=== PATIENT | male | born 1960 | race Caucasian/White ===

== ENCOUNTER 2018-06-28 08:19 | Observation (INO) ==
--- NOTE | 2018-06-28 09:46 | Emergency Department Note ---
Disposition Clinical Impression: Esophageal mass Dysphagia Qualifiers: Dysphagia type: esophageal phase Qualified Code(s): R13.10 - Dysphagia, unspecified Disposition: Admitted As Inpatient Condition: Fair Time of Disposition: 17:00 General Adult HPI - General Chief complaint: ED Dental/Oral Stated complaint: "trouble swallowing" Time Seen by Provider: 06/28/18 09:02 Source: patient, family Limitations: no limitations Nursing Notes Reviewed: Yes Vital Signs Reviewed: Yes - History of Present Illness HPI Narrative: Patient is a 58-year-old male who presents to [facility] ED with a chief complaint of trouble swallowing. States his symptoms have been worsening over the last 2 weeks. States he has not been able to swallow any meat for 2 weeks. He has been able to take down liquids, however he states this has been getting worse as well. States he is only able to take a sip at a time. States he feels like it builds up in his chest and then he is able to squeeze it back out if he wants to. States there is a family history of his siblings having issues with esophageal strictures or growths. Also describes a 30 pound weight loss over the last 2 months. Denies any chest pain, difficulty breathing, abdominal pain, problems with urination or bowel movements. Onset (ago): week(s) (2) Pain Scale: 0 Consistency: constant Improves with: nothing Worsens with: nothing Associated symptoms: Reports: denies other symptoms. Denies: chest pain, cough , fever/chills, nausea/vomiting, shortness of breath Treatments Prior to Arrival: none - Related Data Home Medications Medication Instructions Recorded Confirmed No Known Home Drugs 06/28/18 06/28/18 Allergies Allergy/AdvReac Type Severity Reaction Status Date / Time No Known Allergies Allergy Verified 06/28/18 14:40 All systems ED: reviewed and negative except as stated. Past Medical History - Past Medical History Attestation: Yes The following information was validated with the patient. Source: patient Medical history: Reports: non-contributory - Social History Smoking Status: Current every day smoker Smokeless Tobacco Status: No Alcohol use: Reports: none Drug use: Reports: none Physical Exam - General Limitations: no limitations General appearance: alert, in no apparent distress - Head Head exam: atraumatic, normocephalic, normal inspection - Eye Eye exam: Present: EOMI - ENT ENT exam: normal exam, normal oropharynx, mucous membranes moist - Neck Neck exam: Present: normal inspection, full ROM, trachea midline - Chest Chest inspection: Present: normal inspection, symmetric chest wall rise - Respiratory Respiratory exam: Present: normal lung sounds bilaterally - Cardiovascular Cardiovascular exam: Present: regular rate, normal rhythm, normal heart sounds - Abdominal Exam Abdominal exam: Present: soft, Non-Tender. Absent: tenderness, distention, guarding, rebound, rigidity - Extremities Exam Extremities exam: Present: normal inspection, full ROM. Absent: tenderness, pedal edema - Neurological Exam Neurological exam: Present: alert, oriented X3 - Psychiatric Psychiatric exam: Present: normal affect, normal mood - Skin Skin exam: Present: warm, dry, intact, normal color Course Course Narrative: Patient seen and examined. Due to the dysphagia that patient has had, we will discuss with whoever is on for endoscopy. I discussed with surgery team who states they will be down to evaluate the patient. - Reevaluation(s) Reevaluation #1: Upon further questioning, surgery had not been down to evaluate the patient. They called the vocational counselor nurse practitioner who states they will be down to evaluate the patient if we put in consult. I went ahead and did this. Time: 11:00 Reevaluation #2: I called gastroenterology back again since they had not been down to evaluate the patient and his length of stay is now 6 [address] The vocational counselor Dr. Presley stated to do a CT of the chest with IV contrast to evaluate for any impingement from a mass. States he would do a scope on the patient in the morning if we get him admitted to the hospitalist. When I went back to discuss this with the patient, patient does not want to be admitted tonight. States he will get the labs and imaging done but would like to come back in the morning for scope. Time: 14:41 Reevaluation #3: I discussed with gastroenterology to see if we could get this set up tomorrow outpatient. They expressed their concern that this would not be able to get done due to needing preauthorization. This would delay patient's upper scope. Since the CT shows some signs of a underlying mass at the GE junction that needs direct further visualization, it is still recommended that we admit him to the hospital so he can have his scope done tomorrow. I discussed this with the patient who agrees with this plan. Ira hospitalist at this time. Time: 16:40 Vital Signs Temperature 98.1 F 06/28/18 08:23 Pulse Rate 85 06/28/18 08:23 Respiratory Rate 16 06/28/18 08:23 Blood Pressure 154/99 06/28/18 08:23 O2 Sat by Pulse Oximetry 98 06/28/18 08:23 Temperature 98.2 F 06/28/18 19:53 Pulse Rate 63 06/28/18 19:53 Respiratory Rate 16 06/28/18 19:53 Blood Pressure 132/82 06/28/18 19:53 O2 Sat by Pulse Oximetry 98 06/28/18 19:53 Oxygen Delivery Oxygen Delivery Room Air Medical Decision Making - Medical Records Medical records reviewed: Yes I reviewed the patient's medical records. - Lab Data Lab results reviewed: Yes I reviewed the patient's lab results. Result diagrams: 06/28/18 14:22 06/28/18 14:22 Lab Results 06/28/18 06/28/18 Range/Units 14:22 14:22 WBC 7.0 (4.3-11.1) K/mcL RBC 5.75 H (4.19-5.50) M/mcL Hgb 16.7 (12.9-16.9) g/dL Hct 49.1 (37.5-50.1) % MCV 85.4 (83.0-100.0) fL MCH 29.0 (28.0-33.3) pg MCHC 34.0 (31.6-35.5) g/dL RDW 12.8 (11.5-14.5) % Plt Count 211 (140-400) K/mcL MPV 11.2 (9.4-12.4) fL Immature Gran % 0.1 (0-4) % Seg Neutrophils % 46.0 % Lymphocytes % 43.2 % Monocytes % 8.1 % Eosinophils % 2.0 % Basophils % 0.6 % Neutrophils # 3.2 (1.6-8.9) K/mcL Lymphocytes # 3.0 (0.6-4.6) K/mcL Monocytes # 0.6 (0.0-1.3) K/mcL Eosinophils # 0.1 (0.0-0.6) K/mcL Basophils # 0.0 (0.0-0.2) K/mcL Sodium 138 (136-145) mEq/L Potassium 4.4 (3.5-5.1) mEq/L Chloride 104 (98-107) mEq/L Carbon Dioxide 29 (23-29) mEq/L BUN 16 (6-20) mg/dL Creatinine 1.23 (0.70-1.30) mg/dL Est GFR ( Amer) > 60 (> 60) Est GFR (Non-Af Amer) > 60 (> 60) BUN/Creatinine Ratio 13 (6-26) Glucose 99 (70-105) mg/dL Calculated Osmolality 287 (280-300) Calcium 9.8 (8.6-10.3) mg/dL - Radiology Data Radiology results reviewed: Yes I reviewed the patient's radiology results. Chest CT 06/28/18 14:22 IMPRESSION: 1. Focal wall thickening at the distal esophagus/gastroesophageal junction, concerning for an underlying mass. Direct visualization is recommended. 2. No intrathoracic lymphadenopathy. 3. A couple 4 mm nodules are seen in the left lower lobe. Follow-up recommendations below. RECOMMENDATIONS: Fleischner Society guidelines for follow-up and management of incidentally detected pulmonary nodules: Multiple Solid Nodules: Nodule size less than 6 mm In a low-risk patient, no routine follow-up. In a high-risk patient, optional CT at 12 months. -Low risk patients include individuals with minimal or absent history of smoking and other known risk factors. - High risk patients include individuals with a history or smoking or known risk factors. Radiology 2017 http://pubs.rsna.org/doi/full/10.1148/[email or web address] D/ / 06/28/2018 17:02:51 Adrianne Padgett / connie Interpreting Provider: Adrianne Padgett
--- NOTE | 2018-06-28 10:00 | Emergency Department Note ---
Disposition Clinical Impression: Dysphagia Qualifiers: Dysphagia type: esophageal phase Qualified Code(s): R13.10 - Dysphagia, unspecified Disposition: Admitted As Inpatient Condition: Fair General Adult HPI - General Chief complaint: ED Dental/Oral Stated complaint: "trouble swallowing" Time Seen by Provider: 06/28/18 09:02 Source: patient, family Limitations: no limitations - History of Present Illness Pain Scale: 0 - Related Data Home Medications Medication Instructions Recorded Confirmed No Known Home Drugs 06/28/18 06/28/18 Allergies Allergy/AdvReac Type Severity Reaction Status Date / Time No Known Allergies Allergy Verified 06/28/18 14:40 Past Medical History - Past Medical History Medical history: Reports: non-contributory - Social History Smoking Status: Current every day smoker Smokeless Tobacco Status: No Alcohol use: Reports: none Drug use: Reports: none Physical Exam - General Limitations: no limitations General appearance: alert, in no apparent distress Course Vital Signs Temperature 98.1 F 06/28/18 08:23 Pulse Rate 85 06/28/18 08:23 Respiratory Rate 16 06/28/18 08:23 Blood Pressure 154/99 06/28/18 08:23 O2 Sat by Pulse Oximetry 98 06/28/18 08:23 Temperature 98.1 F 06/28/18 08:36 Pulse Rate 71 06/28/18 16:29 Respiratory Rate 18 06/28/18 17:18 Blood Pressure 148/73 06/28/18 17:18 O2 Sat by Pulse Oximetry 99 06/28/18 16:29 Oxygen Delivery Oxygen Delivery Room Air Medical Decision Making - Lab Data Result diagrams: 06/28/18 14:22 06/28/18 14:22 Lab Results 06/28/18 06/28/18 Range/Units 14:22 14:22 WBC 7.0 (4.3-11.1) K/mcL RBC 5.75 H (4.19-5.50) M/mcL Hgb 16.7 (12.9-16.9) g/dL Hct 49.1 (37.5-50.1) % MCV 85.4 (83.0-100.0) fL MCH 29.0 (28.0-33.3) pg MCHC 34.0 (31.6-35.5) g/dL RDW 12.8 (11.5-14.5) % Plt Count 211 (140-400) K/mcL MPV 11.2 (9.4-12.4) fL Immature Gran % 0.1 (0-4) % Seg Neutrophils % 46.0 % Lymphocytes % 43.2 % Monocytes % 8.1 % Eosinophils % 2.0 % Basophils % 0.6 % Neutrophils # 3.2 (1.6-8.9) K/mcL Lymphocytes # 3.0 (0.6-4.6) K/mcL Monocytes # 0.6 (0.0-1.3) K/mcL Eosinophils # 0.1 (0.0-0.6) K/mcL Basophils # 0.0 (0.0-0.2) K/mcL Sodium 138 (136-145) mEq/L Potassium 4.4 (3.5-5.1) mEq/L Chloride 104 (98-107) mEq/L Carbon Dioxide 29 (23-29) mEq/L BUN 16 (6-20) mg/dL Creatinine 1.23 (0.70-1.30) mg/dL Est GFR ( Amer) > 60 (> 60) Est GFR (Non-Af Amer) > 60 (> 60) BUN/Creatinine Ratio 13 (6-26) Glucose 99 (70-105) mg/dL Calculated Osmolality 287 (280-300) Calcium 9.8 (8.6-10.3) mg/dL Attestation Statement - Attestation Attestation: I examined this patient and my medical decision-making was reviewed with the TEMPORARY HELP AGENCY REFERRAL CLERK/PA/Advanced Practice Nurse/Resident Physician. I agree with the documented findings, disposition and treatment plan as described except to the extent set forth below. I did see the patient is spoke with him and examined him and he presents with 30 pounds unintentional weight loss as well as inability to swallow solids. He did have discomfort with swallowing and saw a driver/sales workers recently who did a laryngoscopy which the patient tells me was normal. We are contacting GI for consideration of endoscopy. I feel the utility of CT or labs at this point would be minimal and the patient should have his esophagus imaged as our concern at this point is for esophageal malignancy 1000 CT scan does show findings concerning for malignancy and the patient is admitted for endoscopy per GI. 502
--- NOTE | 2018-06-28 11:02 | Event Note ---
Date of Encounter: 06/28/18 Time of Encounter: 11:00 Dr. Cespedes was paged to see this patient; however, it is noted that Dr. Cespedes calibration checker for GI bleed only. Dr. Presley is calibration checker for GI. I have attemtped to reach Dr. Presley and Dr. Avery, but due to patient care, have been unsuccessful. This note is being for continuity/documentation purposes so that parties are aware, Dr. Presley should be paged for consult.
[2018-06-28] MEDS ORDERED: Isovue-370 500 ML INFUS..BTL IV ONE (14:22)
[2018-06-28] MEDS ORDERED: 0.9 % Sodium Chloride 1,000 ML IVC ONE (14:22)
[2018-06-28 15:37] LABS: Basophils % 0.6 %; Eosinophils # 0.1 K/mcL (0.0-0.6); Hematocrit 49.1 % (37.5-50.1); Hemoglobin 16.7 g/dL (12.9-16.9); Immature Granulocytes % 0.1 % (0-4); Lymphocytes % 43.2 %; Mean Corpuscular Volume 85.4 fL (83.0-100.0); Mean Platelet Volume 11.2 fL (9.4-12.4); Monocytes # 0.6 K/mcL (0.0-1.3); Monocytes % 8.1 %; Neutrophils # 3.2 K/mcL (1.6-8.9); Platelet Count 211 K/mcL (140-400); Red Blood Count 5.75 M/mcL (4.19-5.50); Red Cell Distribution Width 12.8 % (11.5-14.5)
[2018-06-28 15:55] LABS: BUN/Creatinine Ratio 13 (6-26); Blood Urea Nitrogen 16 mg/dL (6-20); Calcium 9.8 mg/dL (8.6-10.3); Carbon Dioxide 29 mEq/L (23-29); Chloride 104 mEq/L (98-107); Glucose 99 mg/dL (70-105); Osmolality,Calculated 287 (280-300); Potassium 4.4 mEq/L (3.5-5.1); Sodium 138 mEq/L (136-145); eGFR For Non-African Americans > 60 (> 60)
[2018-06-28] MEDS ORDERED: Naloxone 0.4 MG/ML INJ IVP PRN ×2 (17:37→17:38)
[2018-06-28] MEDS ORDERED: traMADol 50 MG TABLET PO PRN (17:38)
[2018-06-28] MEDS ORDERED: Acetaminophen 325 MG TABLET PO PRN (17:38)
--- NOTE | 2018-06-28 17:42 | Internal Med History&Physical ---
Date of Encounter: 06/28/18 Time of Encounter: 17:42 Internal Medicine - H&P: HPI Admitted From: Home Plans for Post Hospital Care: Home History of present illness: Patient is a 58-year-old male who presents to [facility] ED with a chief complaint of trouble swallowing. States his symptoms have been worsening over the last 2 weeks. States he has not been able to swallow any meat for 2 weeks. He has been able to take down liquids, however he states this has been getting worse as well. States he is only able to take a sip at a time. States he feels like it builds up in his chest and then he is able to squeeze it back out if he wants to. States there is a family history of his siblings having issues with esophageal strictures or growths. Also describes a 20 pound weight loss over the last 2 months. Denies any chest pain, difficulty breathing, abdominal pain, problems with urination or bowel movements. At the ED, patient vital signs were stable, CT chest with IV contrast revealed GE junction mass. Patient will be admitted for further evaluation and management. Past Med Surg Social Fam HX - Past Medical History Medical history: non-contributory - Social History Smoking Status: Current every day smoker Smokeless Tobacco Status: No Alcohol use: none Drug use: none Internal Medicine - H&P: Meds No Known Home Drugs 06/28/18 [History] 3 Allergy/AdvReac Type Severity Reaction Status Date / Time No Known Allergies Allergy Verified 06/28/18 14:40 All Systems PM: A 10-system review of systems was performed and is negative for pertinent findings except as documented above in the HPI. Review of systems: REVIEW OF SYSTEMS: CONSTITUTIONAL: see HPI. HEENT: Eyes: No visual loss, blurred vision, double vision or yellow sclerae. Ears, Nose, Throat: No hearing loss, sneezing, congestion, runny nose or sore throat. SKIN: No rash or itching. CARDIOVASCULAR: No chest pain, chest pressure or chest discomfort. No palpitations or edema. RESPIRATORY: No shortness of breath, cough or sputum. GASTROINTESTINAL: see HPI. GENITOURINARY: No dysuria, urgency, or frequency. NEUROLOGICAL: No headache, dizziness, syncope, paralysis, ataxia, numbness or tingling in the extremities. No change in bowel or bladder control. MUSCULOSKELETAL: No muscle, back pain, joint pain or stiffness. HEMATOLOGIC: No anemia, bleeding or bruising. LYMPHATICS: No enlarged nodes. No history of splenectomy. PSYCHIATRIC: No history of depression or anxiety. ENDOCRINOLOGIC: No reports of sweating, cold or heat intolerance. No polyuria or polydipsia. - Constitutional Vitals: Temp Pulse Resp BP Pulse Ox 98.1 F 71 18 148/73 99 06/28/18 08:36 06/28/18 16:29 06/28/18 17:18 06/28/18 17:18 06/28/18 16:29 General appearance: Present: cooperative, A&O X 3, answers questions appropriately Exam: PHYSICAL EXAMINATION: GENERAL APPEARANCE: The patient is alert, oriented and in no acute distress. HEENT: Head is normocephalic. The sinuses are nontender. Pupils are equal and reactive. The nares are patent. Oropharynx clear without lesions. NECK: Supple without lymphadenopathy. HEART: Regular rate and rhythm. LUNGS: No crackles or wheezes are heard. ABDOMEN: Soft, nontender, nondistended with good bowel sounds heard. Inguinal area is normal. EXTREMITIES: Without cyanosis, clubbing or edema. NEUROLOGICAL: Gross nonfocal. SKIN: Warm and dry without any rash. Internal Med - H&P Results - Labs CBC & Chem 7: 06/28/18 14:22 06/28/18 14:22 - Assessment and plan (1) Dysphagia Current Visit: Yes Status: Acute Assessment and plan: 58-year-old male with family history of stomach cancer, esophageal stricture, esophageal mass, and Watts syndrome presented with progressive dysphagia. This started with solid food, and then progressed to liquid over a period of 2 months. Patient also has associated weight loss, he lost 20 pounds over 2 months. Patient's father and mother both had stomach cancer, one sister has esophageal stricture, another sister has esophageal growth with uncertain pathology. He denies history of smoking or eating canned food. - CT chest with with IV contrast revealed mass in the GE junction, No mediastinal lymphadenopathy. - Continue supportive care with IV fluid, nothing by mouth after midnight, GI to scope in the morning. Qualifiers: Dysphagia type: esophageal phase Qualified Code(s): R13.10 - Dysphagia, unspecified - Time Spent With Patient Total time spent is greater than 50% in coordination of care (as documented) at patient's floor/unit and/or counseling patient: Greater than 35 minutes
[2018-06-28] MEDS: Pantoprazole 40 MG VIAL IVP SCH (18:46)
[2018-06-28] MEDS: *HR* Heparin 5,000 UNIT/ML VIAL SQ SCH (18:46)
--- NOTE | 2018-06-28 23:14 | Anesthesia Evaluation PreOp ---
Date of Encounter: 06/28/18 Time of Encounter: 23:13 - Past History Planned Operation: EGD/Dilation Cardiac History: Denies any Significant Hx Pulmonary History: Smoker [employer] History: Denies Any Significant HX Other Medical History: Denies Any Significant HX Anesthesia History: No Prior Anesthetic Complications, Past Anesthesia Alcohol Use: none Drug use: none Medications and Allergies No Known Home Drugs 06/28/18 [History] 3 Allergy/AdvReac Type Severity Reaction Status Date / Time No Known Allergies Allergy Verified 06/28/18 14:40 - Meds/Allergy Pre-op Review Medications Reviewed: Yes Allergies Reviewed: Yes Beta Blockers on Current Med List: Yes Anesthesia Results - Labs 06/28/18 14:22 06/28/18 14:22 Anesthesia Exam Vital Signs Temp Pulse Resp BP Pulse Ox 06/28/18 19:53 98.2 F 63 16 132/82 98 06/28/18 18:30 97.7 F 68 16 153/97 96 06/28/18 17:54 98 06/28/18 17:18 18 148/73 06/28/18 16:29 71 16 140/77 99 06/28/18 08:36 98.1 F 85 16 154/99 98 06/28/18 08:23 98.1 F 85 16 154/99 98 Intake and Output 06/28/18 06/28/18 06/28/18 07:59 15:59 23:59 Intake Total 1000 / 1000 Balance 1000 / 1000 Intake: IV Fluids 1000 / 1000 0.9 % Sodium Chloride 1,000 ML 1000 / 1000 @ 3750 mls/hr IVC .Q16M ONE Rx# :[id number] Other: Meal Dinner Percent of Meal Consumed 85% Weight 95.254 kg Patient Weight 06/28/18 23:59 Weight 95.254 kg Height: 6'2" Weight: 210# BMI = 27 NPO (# of Hours): Mnoc Anesthesia Assess/Plan ASA Score: 2 (Smoker, Dysphagia) Anesthetic Plan: MAC Monitoring Plan: Standard Monitors Recovery Plan: Other
[2018-06-29] MEDS: *HR* Heparin 5,000 UNIT/ML VIAL SQ SCH (05:10)
[2018-06-29 05:34] LABS: Basophils % 0.6 %; Eosinophils # 0.2 K/mcL (0.0-0.6); Eosinophils % 2.4 %; Immature Granulocytes % 0.2 % (0-4); Lymphocytes # 2.7 K/mcL (0.6-4.6); Lymphocytes % 41.5 %; Mean Corpuscular HGB Conc 33.4 g/dL (31.6-35.5); Mean Corpuscular Hemoglobin 28.8 pg (28.0-33.3); Mean Corpuscular Volume 86.3 fL (83.0-100.0); Mean Platelet Volume 11.3 fL (9.4-12.4); Monocytes # 0.6 K/mcL (0.0-1.3); Monocytes % 8.7 %; Neutrophils # 3.1 K/mcL (1.6-8.9); Platelet Count 187 K/mcL (140-400); Red Cell Distribution Width 12.6 % (11.5-14.5); Segmented Neutrophils % 46.6 %
[2018-06-29 05:38] LABS: INR 1.2; Prothrombin Time 13.3 Seconds (9.4-12.1)
[2018-06-29 05:39] LABS: Hemoglobin 14.7 g/dL (12.9-16.9)
[2018-06-29 05:46] LABS: BUN/Creatinine Ratio 12 (6-26); Blood Urea Nitrogen 13 mg/dL (6-20); Calcium 9.1 mg/dL (8.6-10.3); Carbon Dioxide 26 mEq/L (23-29); Chloride 106 mEq/L (98-107); Glucose 87 mg/dL (70-105); Osmolality,Calculated 287 (280-300); Potassium 4.1 mEq/L (3.5-5.1); Sodium 139 mEq/L (136-145); eGFR For Non-African Americans > 60 (> 60)
[2018-06-29] MEDS ORDERED: *HR* Propofol 200 MG/20 ML VIAL IVP ONE ×2 (07:06→07:40)
[2018-06-29] MEDS ORDERED: Lidocaine -MPF 2% 2 ML VIAL ONE ×2 (07:06)
--- NOTE | 2018-06-29 08:51 | Anesthesia Evaluation Post Op ---
Date of Encounter: 06/29/18 Time of Encounter: 08:44 - Vital Signs Vital Signs: BP 127/86, Hr 98, SpO2 97% on RA, RR 14 - Lungs Lungs: Clear Ascult./Percussion - Airway Airway: Non-obstructed - Cardiovascular Regular Rate, Baseline Rhythm - Mental Status Mental Status: Alert & Oriented, Answers Appropriately - Pain Pain Scale: 0 Pain Scale used: Numeric (1 - 10) - Nausea Vomiting Nausea Vomiting: Not Present - Discharge PostOp Status: Transfer Patient to floor
[2018-06-29] MEDS: Pantoprazole 40 MG VIAL IVP SCH (09:09)
--- NOTE | 2018-06-29 10:30 | Gastroenterology Consult Note ---
<Kelly Cohen M - Last Filed: 06/29/18 10:23> Date of Encounter: 06/29/18 Time of Encounter: 09:15 - Assessment and plan (1) Dysphagia Status: Acute Assessment and plan: Pt underwent an EGD which showed a near obstructing esophageal mass. He needs oncology consult and surgically placed gastrostomy tube for nutrition. Tumor appears malignant pathology pending. Qualifiers: Dysphagia type: esophageal phase Qualified Code(s): R13.10 - Dysphagia, unspecified (2) Esophageal mass Status: Acute - Time Spent With Patient Total time spent is greater than 50% in coordination of care (as documented) at patient's floor/unit and/or counseling patient: GI History of Present Illness - Data of Consult Patient: new to practice Consult date: 06/29/18 Requesting Physician: Brissa Foster MD - Consult Narrative Reason for consult: dysphagia/weight loss History of present illness: Patient is a 58-year-old male who presents to [facility] ED with a chief complaint of trouble swallowing. States his symptoms have been worsening over the last 2 weeks. States he has not been able to swallow any meat for 2 weeks. He has been able to take down liquids, however he states this has been getting worse as well. States he is only able to take a sip at a time. States he feels like it builds up in his chest and then he is able to squeeze it back out if he wants to. States there is a family history of his siblings having issues with esophageal strictures or growths. He also admits to a 20 pound weight loss over the last 2 months. Denies any chest pain, difficulty breathing, abdominal pain, problems with urination, diarrhea or constipation. No bloody or tarry stools. CT chest with IV contrast revealed GE junction mass. Past Med Surg Social Fam HX - Past Medical History Medical history: non-contributory Psychiatric history: no psych history - Social History Smoking Status: Current every day smoker Smokeless Tobacco Status: No Alcohol use: none Drug use: none - Family History Father Living Status: Still Living Hx Family Cancer: Yes (prostate) Mother Living Status: Cause of : breast cancer Hx Family Cancer: Yes (breast cancer) Maternal Grandmother Hx Family Cardiac Disorders: Yes (heart disease) Paternal Grandmother Cause of : colon cancer Hx Family Cancer: Yes (colon cancer) Sister Hx Family GI Disorders: Yes (esophageal stricture) Review of Systems: GI: as per [facility] GENERAL: denies fever, has some chills EYES: denies yellow discoloration ENT: see HPI CARDIO: denies chest pain RESP: Shortness of breath with exertion : denies change in color of urine NEURO: increased weakness HEME: Denies any bruising MS: chronic joint and back pain. DERM: denies rash or itching PSYCH: Denies history of anxiety or depression - Constitutional Vitals: Temp Pulse Resp BP Pulse Ox 97.7 F 68 16 127/81 98 06/29/18 09:15 06/29/18 09:15 06/29/18 09:15 06/29/18 09:15 06/29/18 09:15 Exam: CONSTITUTIONAL:~alert, no acute distress.~HEAD:~normocephalic.~EYES:~no jaundice.~NECK:~no obvious swelling.~HEART:~regular rate and rhythm, no murmurs. ~LUNGS:~bilateral good air entry.~ABDOMEN:~non distended, soft, non tender, no masses palpable, no organomegaly.~RECTAL EXAM:~Deferred.~EXTREMITIES:~no clubbing, cyanosis or edema.~SKIN:~no stigmata of chronic liver disease.~ NEUROLOGIC:~no obvious focal defect.~~~~ Results - Labs CBC & Chem 7: 06/29/18 04:36 06/29/18 04:36 Labs: Last Result Calcium 9.1 mg/dL (8.6-10.3) 06/29/18 04:36 Entire Visit Hgb 14.7 g/dL (12.9-16.9) D 06/29/18 04:36 Hct 44.0 % (37.5-50.1) 06/29/18 04:36 PT 13.3 Seconds (9.4-12.1) H 06/29/18 04:36 - ABG ABG results: PT/INR, D-dimer PT 13.3 Seconds (9.4-12.1) H 06/29/18 04:36 Consult Discharge Plan - Plan Instructions: Chronic Dysphagia (DC) Referrals: Saritha Sherman CNP [Primary Care Provider] - <Zeyad Presley - Last Filed: 07/24/18 15:53> Date of Encounter: 06/29/18 - Time Spent With Patient Total time spent is greater than 50% in coordination of care (as documented) at patient's floor/unit and/or counseling patient: GI History of Present Illness - Data of Consult Requesting Physician: Brissa Foster MD - Consult Narrative History of present illness: Mr. Good is a 58 year old male - Constitutional Vitals: Temp Pulse Resp BP Pulse Ox 98.4 F 67 17 146/80 96 06/29/18 11:13 06/29/18 11:13 06/29/18 11:13 06/29/18 11:13 06/29/18 11:13 Results - Labs CBC & Chem 7: 06/29/18 04:36 06/29/18 04:36 Labs: Last Result Calcium 9.1 mg/dL (8.6-10.3) 06/29/18 04:36 Entire Visit Hgb 14.7 g/dL (12.9-16.9) D 06/29/18 04:36 Hct 44.0 % (37.5-50.1) 06/29/18 04:36 PT 13.3 Seconds (9.4-12.1) H 06/29/18 04:36 - ABG ABG results: PT/INR, D-dimer PT 13.3 Seconds (9.4-12.1) H 06/29/18 04:36 - Attending Attestation Patient is a 58 year old male with dysphagia. Worrisome for neoplasm distal esophagus. Plan EGD I have personally performed a face to face evaluation on this patient. I have reviewed and agree with the care plan. History and Exam by me shows:
[2018-06-29 11:15] VITALS: BP 146/80
--- NOTE | 2018-06-29 11:24 | Internal Med Progress Note ---
Hospitalist Progress Note - Encounter Date of Encounter: 06/29/18 Time of Encounter: 11:20 - Subjective Interval History: Patient off floor to the GI lab, we will come back to see the patient later today. - Exam Vitals: Temp Pulse Resp BP Pulse Ox 98.4 F 67 17 146/80 96 06/29/18 11:13 06/29/18 11:13 06/29/18 11:13 06/29/18 11:13 06/29/18 11:13 Exam: PHYSICAL EXAMINATION: GENERAL APPEARANCE: The patient is alert, oriented and in no acute distress. HEENT: Head is normocephalic. The sinuses are nontender. Pupils are equal and reactive. The nares are patent. Oropharynx clear without lesions. NECK: Supple without lymphadenopathy. HEART: Regular rate and rhythm. LUNGS: No crackles or wheezes are heard. ABDOMEN: Soft, nontender, nondistended with good bowel sounds heard. Inguinal area is normal. EXTREMITIES: Without cyanosis, clubbing or edema. NEUROLOGICAL: Gross nonfocal. SKIN: Warm and dry without any rash. - Assessment and Plan (1) Dysphagia Current Visit: Yes Status: Acute Assessment and Plan: 58-year-old male with family history of stomach cancer, esophageal stricture, esophageal mass, and Watts syndrome presented with progressive dysphagia. This started with solid food, and then progressed to liquid over a period of 2 months. Patient also has associated weight loss, he lost 20 pounds over 2 months. Patient's father and mother both had stomach cancer, one sister has esophageal stricture, another sister has esophageal growth with uncertain pathology. He denies history of smoking or eating canned food. - CT chest with with IV contrast revealed mass in the GE junction, No mediastinal lymphadenopathy. Underwent EGD today which showed esophageal mass, appears malignancy, pathology pending. - Continue supportive care with IV fluid, oncology and surgery ( PEG) consulted. DVT Prophylaxis: Heparin subcutaneous - Time Spent with Patient Total time spent is greater than 50% in coordination of care (as documented) at patient's floor/unit and/or counseling patient: Greater than 35 minutes Plan of Care Discussed with: patient Internal Medicine: Result - Labs CBC & Chem 7: 06/29/18 04:36 06/29/18 04:36 Labs: Short CBC 06/29/18 Range/Units 04:36 WBC 6.6 (4.3-11.1) K/mcL Hgb 14.7 D (12.9-16.9) g/dL Hct 44.0 (37.5-50.1) % Plt Count 187 (140-400) K/mcL Neutrophils # 3.1 (1.6-8.9) K/mcL BMP 06/29/18 04:36 Sodium 139 Potassium 4.1 Chloride 106 Carbon Dioxide 26 BUN 13 Creatinine 1.11 Glucose 87 Calcium 9.1 - ABG Interpretation ABG results: PT/INR, D-dimer PT 13.3 Seconds (9.4-12.1) H 06/29/18 04:36 Consult Discharge Plan - Plan Referrals: Saritha Sherman, SARAH [Primary Care Provider] - (1) Dysphagia Qualifiers: Dysphagia type: esophageal phase Qualified Code(s): R13.10 - Dysphagia, unspecified
--- NOTE | 2018-06-29 13:51 | Discharge Summary ---
- NOTES TO OUTPATIENT PROVIDER Notes to Outpatient Provider: f/u with oncology at the early of next week. f/u with GI at the early of next week. Orders not resulted at time of discharge: Pending orders 06/29/18 08:39 Surgical Pathology [PTH] Routine Date of Encounter: 06/29/18 Time of Encounter: 13:49 - Discharge Diagnosis (1) Dysphagia Priority: Primary Status: Acute Qualifiers: Dysphagia type: esophageal phase Qualified Code(s): R13.10 - Dysphagia, unspecified Hospital course: Mr. Good is a 58 year old male with family history of stomach cancer, esophageal stricture, esophageal mass, and Watts syndrome presented with progressive dysphagia. This started with solid food, and then progressed to liquid over a period of 2 months. Patient also has associated weight loss, he lost 20 pounds over 2 months. Patient's father and mother both had stomach cancer, one sister has esophageal stricture, another sister has esophageal growth with uncertain pathology. He denies history of smoking or eating canned food. CT chest with with IV contrast revealed mass in the GE junction, No mediastinal lymphadenopathy. Underwent EGD 06/29/2018 which showed esophageal mass, appears malignancy, pathology pending. Pt would like to go home and follow up with oncology, he refuses PEG tube which was recommended by GI. He will be discharged home today, and he will follow up with oncology and GI at early of next week. Discharge discussed with: patient Time spent discussing smoking cessation with patient: more than 10 minutes - Time Spent with Patient Total time spent providing and/or coordinating discharge services: Greater than 30 minutes - Discharge Medications Home Medications: No Known Home Drugs 06/28/18 [History] Allergies/Adverse Reactions: 3 Allergy/AdvReac Type Severity Reaction Status Date / Time No Known Allergies Allergy Verified 06/28/18 14:40 Date of admission: 06/28/18 17:07 Primary care physician: Saritha Sherman CNP Consults: 06/29/18 11:16 Consult to Oncology Hematology [CONS] Routine Consulting Provider: On[facility] Reason for Consult: esophageal cancer Call Completed: Yes Consult to Surgery [CONS] Routine Consulting Provider: [facility] Reason for Consult: PEG tube place Call Completed: Yes Anticipated date of discharge: 06/29/18 - Constitutional Vitals: Temp Pulse Resp BP Pulse Ox 98.4 F 67 17 146/80 96 06/29/18 11:13 06/29/18 11:13 06/29/18 11:13 06/29/18 11:13 06/29/18 11:13 General appearance: Present: cooperative, A&O X 3, answers questions appropriately Exam: PHYSICAL EXAMINATION: GENERAL APPEARANCE: The patient is alert, oriented and in no acute distress. HEENT: Head is normocephalic. The sinuses are nontender. Pupils are equal and reactive. The nares are patent. Oropharynx clear without lesions. NECK: Supple without lymphadenopathy. HEART: Regular rate and rhythm. LUNGS: No crackles or wheezes are heard. ABDOMEN: Soft, nontender, nondistended with good bowel sounds heard. Inguinal area is normal. EXTREMITIES: Without cyanosis, clubbing or edema. NEUROLOGICAL: Gross nonfocal. SKIN: Warm and dry without any rash. - Patient Status Disposition: Home, Self-Care Condition: Fair Functional capacity at discharge: independent ambulation Overall status at discharge: patient is back to baseline - Discharge Instructions Follow Up With: Saritha Sherman CNP [Primary Care Provider] - - Diet and Activity Activity: increase activity as tolerated Diet: advance to your usual diet
--- NOTE | 2018-06-29 14:39 | Event Note ---
Date of Encounter: 06/29/18 Time of Encounter: 14:00 Attempted to see patient after reviewing records, he i sdischarged home. He will be seen on outpatient consultation with biopsy results.
== END 2018-06-29 14:20 | disposition home or self-care (01) ==
LOC: EMEROOARM 08:19 → 3BNU 08:19
PROVIDERS: ADMIT Internal Medicine; ATTEND Internal Medicine
PROC: ENDOEBX (2018-06-29 08:50)